=== PATIENT | female | born 1950 | race Caucasian/White ===

== ENCOUNTER 2016-10-14 19:14 | Emergency (ER) | payer OTHER ==
[~2016-10-14] VITALS: Ht 160 cm; Wt 112.0 kg
[2016-10-14 20:00] VITALS: BP 166/73
[2016-10-14] MEDS ORDERED: PREDNISONE 20 MG TABLET PO ONE (21:15)
--- NOTE | 2016-10-14 21:26 | PHYS DOC ---
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 States she is using albuterol inhaler with improvement of breathing and cough. States she is [place] and feels she needs an antibiotic and steroid (states she usually gets better with a shot of rocephin). She denies measured fever, palpitations, diaphoresis, lightheadedness, leg pain or swelling, hemoptysis, abdominal pain, nausea or vomiting, diarrhea. Her family member that is traveling with her his sick with the very same illness. Review of Systems Review of Systems Constitutional: Denies measured fever [] Eyes: Denies change in visual acuity, redness, or eye pain [] HENT: Denies nasal congestion [] Respiratory: Denies shortness of breath [] Cardiovascular: No additional information not addressed in HPI [] GI: Denies abdominal pain, nausea, vomiting, bloody stools or diarrhea [] : Denies dysuria or hematuria [] Musculoskeletal: Denies back pain or joint pain [] Integument: Denies rash or skin lesions [] Neurologic: Denies focal weakness or sensory changes [] Endocrine: Denies polyuria or polydipsia [] Current Medications Current Medications Current Medications Medications (Trade) Dose Ordered Sig/Chauncey Start Time Stop Time Status Last Admin Dose Admin Ceftriaxone Sodium (Rocephin Im) 250 mg 1X ONCE 10/14/16 21:45 10/14/16 21:46 DC Prednisone (Prednisone) 60 mg 1X ONCE 10/14/16 21:15 10/14/16 21:16 DC 10/14/16 21:37 60 MG Allergies Allergies Allergies Coded Allergies Type Severity Reaction Last Updated Verified codeine Allergy Intermediate 10/14/16 Yes Physical Exam Physical Exam Constitutional: Well developed, well nourished, no acute distress, non-toxic appearance. [] HENT: Normocephalic, atraumatic, bilateral TMs normal, oropharynx moist, no oral exudates, nose normal. [] Eyes: PERRLA, EOMI, conjunctiva normal, no discharge. [] Neck: Normal range of motion, no tenderness, supple, no stridor. [] Cardiovascular:Heart rate regular rhythm [] Lungs & Thorax: Minimal bilateral wheezing with normal respiratory effort, bronchospastic cough [] Abdomen: Bowel sounds normal, soft, no tenderness. [] Skin: Warm, dry, no erythema, no rash. [] Back: Normal range of motion. [] Extremities: ROM intact, no edema. [] Neurologic: Alert and oriented X 3, normal motor function, normal sensory function, no focal deficits noted. [] Psychologic: Affect normal, judgement normal, mood normal. [] Current Patient Data Vital Signs Vital Signs Date Time Temp Pulse Resp B/P Pulse Ox O2 Delivery O2 Flow Rate FiO2 10/14/16 20:00 98.7 116 16 96 Room Air 98.7 Course & Med Decision Making Course & Med Decision Making Pertinent Labs and Imaging studies reviewed. (See chart for details) Offered chest x-ray, but she declined. Offered Tylenol or ibuprofen, but she declined. She is influenza positive. Return precautions given. She understands and agrees with plan. Dragon Disclaimer AT [employer] Disclaimer This electronic medical record was generated, in whole or in part, using a voice recognition dictation system. Departure Departure Impression: Primary Impression: Asthma exacerbation Additional Impression: Influenza Disposition: 01 HOME, SELF-CARE Condition: STABLE Referrals: UNKNOWN PCP NAME (PCP) Patient Instructions: Influenza, Adult, [id number] Additional Instructions: Take Tamiflu to help shorten the duration of influenza symptoms. Take prednisone for the next few days for asthma exacerbation. Follow-up with your primary care doctor within one week. Return for any concerns. Scripts Oseltamivir Phosphate (Tamiflu)75 Mg Capsule1 Cap PO BID #10 CAP Prov:Ezekiel FLOREZ MD 10/14/16 Prednisone 50 Mg Tablet1 Tab PO DAILY #4 TAB Prov:Ezekiel FLOREZ MD 10/14/16 Problem Qualifiers Ezekiel FLOREZ MD Oct 14, 2016 21:27
[2016-10-14] MEDS ORDERED: CEFTRIAXONE IM 250 MG VIAL. IM ONE (21:45)
[2016-10-14] MEDS ORDERED: PRED50TA PO (22:20)
[2016-10-14] MEDS ORDERED: OSEL75CA PO (22:20)
[2016-10-14 22:21] LABS: OBC FLU VALID
[2016-10-14] MEDS ORDERED: PROAIR HFA8.5 GM INH (22:25)
== END 2016-10-14 22:40 | disposition home or self-care (01) ==
LOC: ER 19:14
DX: J45.901 Unspecified asthma with (acute) exacerbation (principal); J11.1 Influenza due to unidentified influenza virus with other respiratory manifestations; I10 Essential (primary) hypertension; E11.9 Type 2 diabetes mellitus without complications; Z90.49 Acquired absence of other specified parts of digestive tract; Z90.710 Acquired absence of both cervix and uterus; Z88.5 Allergy status to narcotic agent
CPT/HCPCS: 87804; 96372; 99284; J0696; J7512